=== PATIENT | female | born 1960 | race Caucasian/White ===

== ENCOUNTER 2020-12-10 15:01 | Observation (INO) | payer OTHER, SELFPAY ==
[2020-12-10] VITALS (12 sets, daily range): BP systolic 107–137; BP diastolic 67–77; PULSE 60–78; RESP 16–22; TEMP 37–37.7; O2SAT 90–98; BMI 27.1; BMI 26.6
--- NOTE | 2020-12-10 15:26 | RAD_ITS ---
STUDY: X-RAY CHEST REASON FOR EXAM: Female, 60 years old. cough TECHNIQUE: AP portable COMPARISON: None. FINDINGS: There is mild prominence of markings in the retrocardiac portion of left lower lobe possibly representing inflammatory changes.. There is no demonstrated pleural abnormality. Heart is upper normal size.. Normal mediastinum and flaquita. Normal visualized pulmonary arteries. Tortuous mildly calcified aortic arch and descending thoracic aorta. Dorsal spine demonstrates degenerative change Normal visualized ribs, clavicles, and shoulders. There is no demonstrated abnormality of the visualized soft tissue structures of the upper abdomen. RAD/Chest 1 View (Portable) IMPRESSION: Question mild infiltrate in the left lower lobe. Clinical correlation recommended. Electronically Signed: Joey Oquendo MD at 16:24 EDT , Service support ,
--- NOTE | 2020-12-10 15:29 | EDS_ITS ---
HPI History of Present Illness Chief Complaint: General Illness Informant: patient Onset/Context/Timing Onset: Weeks (1) Context: Gradual Onset Timing: Continuous Quality: Aching Location: Generalized Worsened by: Nothing Relieved by: Nothing Narrative Narrative: Patient presents with cough, fever, and upper respiratory congestion for the past week. Patient states [facility] and was referred to the emergency department for possible Covid. Patient admits to a fever of 103 at home. Patient admits to a cough. Patient states she occasionally coughs up some sputum but she does not look at it. Patient admits to some mild rhinorrhea. Patient denies any sore throat or ear pain. Patient denies any shortness of breath. Patient admits to mild nausea but denies any vomiting. Patient admits to general myalgias and low back pain. Patient also admits to a mild headache. Patient denies any known COVID-19 exposures. Patient has not been vaccinated for COVID-19. [facility] Medical History (Updated 12/10/20 @ 18:[address] Lori Galeas MD) Hypothyroid Home Medications levothyroxine 12.5 mcg PO BID 12/10/20 [History Last Taken 12/10/20] thyroid (pork) [[place] Thyroid] 15 mg PO BID 12/10/20 [History Last Taken 12/10/20] Allergy/AdvReac Type Severity Reaction Status Date / Time No Known Allergies Allergy Verified 12/10/20 15:21 Family History (Updated 12/10/20 @ 18:[address] Lori Galeas MD) Mother CVA (cerebral vascular accident) Hypertension Father Cancer Hx lymphoma. Surgical History (Updated 12/10/20 @ 15:[address] Kilo Scott DO) History of repair of hiatal hernia Hx of tonsillectomy Social History (Updated 12/10/20 @ 18:[address] Lori Galeas MD) household members: spouse Smoking Status: Never smoker alcohol intake: never substance use type: does not use ROS ROS ED Constitutional Constitutional ED: Reports fever(s); Denies chills Eyes Eyes: Denies blurry vision or change in vision ENT ENT ED: Reports rhinorrhea; Denies sore throat Cardiovascular Cardiovascular: Denies chest pain or palpitations Respiratory/Chest Respiratory/Chest: Reports cough; Denies dyspnea Gastrointestinal Gastrointestinal: Denies nausea or vomiting Genitourinary Genitourinary ED: Denies dysuria or hematuria Musculoskeletal Musculoskeletal: Reports back pain and myalgias; Denies neck pain Integumentary Denies abscess or rash Neurologic Neurologic: Reports headache(s); Denies weakness Allergic/Immunologic Allergic/Immunologic ED: Denies mouth swelling or urticaria EXAM Physical Exam Const Vital Signs: 12/10/20 15:01 12/10/20 15:21 12/10/20 15:24 Temperature 99.8 F H 99.8 F H Temperature Source Temporal Temporal Pulse Rate 67 76 Respiratory Rate 20 H 18 Respiratory Effort Normal Respiratory Pattern Normal Blood Pressure 107/71 107/71 Blood Pressure Mean 83 83 Pulse Ox 98 98 Oxygen Delivery Method Room Air Room Air 12/10/20 16:22 12/10/20 17:01 12/10/20 17:05 Temperature 99.7 F H 99.8 F H Temperature Source Temporal Oral Pulse Rate 60 70 74 Respiratory Rate 16 22 H 20 H Respiratory Effort Respiratory Pattern Blood Pressure 137/73 H 115/67 115/67 Blood Pressure Mean 94 83 83 Pulse Ox 90 92 90 Oxygen Delivery Method Room Air Room Air Room Air Positive well nourished and well developed General Appearance ED: well developed HEENT Reports moist mucous membranes Neck supple and no JVD Resp normal respiratory effort Auscultation: rales bilateral Cardio regular rate, regular rhythm and no murmurs GI normal to inspection, nondistended, normoactive bowel sounds and non-tender Palpation: soft Extremity normal to inspection General Extremety ED: Negative for edema or tenderness General Extremity: Negative for edema Neuro oriented x3, CN's II-XII intact bilaterally and no sensory deficits noted Sensorium / Orientation: alert Motor Exam: strength 5/5 throughout Psych mental status grossly normal Skin no rashes or lesions noted MDM MDM MDM Narrative Medical decision making narrative: Portable 1 view chest x-ray was obtained. On my interpretation, lung showed questionable left lower lobe infiltrate. There is normal cardiac silhouette. Bony thorax is normal. Radiologist also interpreted the x-ray and agrees. Rapid strep was obtained and was negative. COVID-19 rapid antigen was obtained and was positive. CBC shows a white blood cell count of 3.8. Comprehensive metabolic profile was obtained and was essentially within normal limits. TSH was obtained and was elevated at 24.8. Lactate was normal. Patient was advised of her findings. Patient is agreeable for monoclonal antibody referral. This was made. Patient was instructed to take Tylenol or ibuprofen as needed for any aches or fevers. Patient was instructed to take Mucinex DM as needed for any cough. Patient was instructed to increase her thyroid medications to a whole tablet twice daily. Patient was instructed to follow-up with her primary care physician in 5 to 7 days. Patient and family understood and were agreeable with the plan. All questions were answered. Prior to discharge, her oxygen saturation started to decrease. Patient was ambulated in her room with a pulse oximeter. Patient states she was lightheaded and dizzy while walking and felt like she was going to pass out. Because of this, I discussed the case with the hospitalist. She will admit the patient to her service for observation. Patient understood and was agreeable with the plan. All questions were answered. Lab Data Attestation: I reviewed the patient's lab results. Labs: Laboratory Results - last 24 hr 12/10/20 12/10/20 12/10/20 15:42 15:42 15:42 WBC 3.8 L RBC 4.17 L Hgb 13.3 Hct 40.0 MCV 95.9 MCH 31.9 MCHC 33.3 RDW Std Deviation 42.8 RDW Coeff of Prateek 12.1 Plt Count 141 L MPV 10.0 Immature Gran % (Auto) 0.500 Neut % (Auto) 69.0 Lymph % (Auto) 24.1 [place] % (Auto) 6.1 Eos % (Auto) 0.0 Baso % (Auto) 0.3 Absolute Neuts (auto) 2.6 Absolute Lymphs (auto) 0.91 Nucleated RBC % 0 Platelet Estimate SLT DEC RBC Morphology NORM C+C Sodium 138 Potassium 3.5 Chloride 100 Carbon Dioxide 31.0 Anion Gap 7 BUN 10 Creatinine 0.67 Estim Creat Clear Calc 76.14 Est GFR (MDRD) Af Amer 116 Est GFR (MDRD) Non-Af 96 BUN/Creatinine Ratio 15.0 Glucose 102 Lactic Acid 1.1 Calcium 8.0 L Total Bilirubin 0.40 AST 25 ALT 23 Alkaline Phosphatase 41 L Total Protein 6.7 Albumin 3.0 L Globulin 3.7 Albumin/Globulin Ratio 0.8 L TSH 24.80 H Radiography Chest X-Ray - ED: 1 View, Read by ED Physician, Read by Radiologist and Left Infiltrate Diagnostic Testing: Radiology Impression Chest X-Ray 12/10/20 15:26 IMPRESSION: Question mild infiltrate in the left lower lobe. Clinical correlation recommended. Electronically Signed: Joey Oquendo MD at 16:24 EDT , Service support , EKG Initial EKG: Attestation: I personally reviewed and interpreted this EKG as follows: Interpretation: Sinus Rhythm (70) and Non-Specific ST Changes Prior EKG tracings: not available for review Treatment and Re-Evaluation Vital Sign Attestation:: Vital signs reviewed prior to admission. They are stable. Discharge Plan Dx/Rx/DC Orders Clinical Impression: COVID-19, Hypothyroidism, Near syncope Disposition Disposition: Acute Care Hospital [facility]
[2020-12-10] MEDS: Acetaminophen 500 MG Tablet 1000 MG PO (15:51)
[2020-12-10 16:02] LABS: Absolute Lymphocyte Count 0.91 X10^3/uL (0.83-4.51); Absolute Neutrophil Count 2.6 X10^3/uL (2.0-7.7); Basophil# 0.01 X10^3/uL; Basophil% 0.3 % (0-1); Hemoglobin 13.3 g/dL (12.0-15.0); Lymphocyte # 0.91 X10^3/ul (0.83-4.51); Lymphocyte % 24.1 % (19-41); Mean Corp Hgb Conc 33.3 g/dL (32-36); Mean Corpuscular Hgb 31.9 pg (27.0-32.0); Mean Corpuscular Volume 95.9 fL (81-99); Monocyte# 0.23 X10^3/uL; Monocyte% 6.1 % (0-10); NRBC Flagged by Analyzer 0 % (0-5); Neutrophil # 2.61 X10^3/uL (2.7-7.7); POSITIVE MORPHOLOGY YES; Platelet Count 141 K/mm3 (150-450); RBC Distribution Width CV 12.1 % (11.6-14.6); RBC Distribution Width SD 42.8 fl (35.1-43.9); Red Blood Count 4.17 M/mm3 (4.2-5.4); White Blood Count 3.8 K/mm3 (4.4-11.0)
[2020-12-10 16:05] LABS: Differential Indicated SCAN CRITERIA MET
[2020-12-10 16:28] LABS: ALB/GLOB Ratio 0.8 RATIO (0.9-2.4); AST(SGOT) 25 U/L (15-37); Alanine Aminotransfer ALT/SGPT 23 U/L (13-56); Alkaline Phosphatase 41 U/L (45-117); Anion Gap 7 (5-15); BUN 10 mg/dL (7-18); Chloride 100 mmol/L (98-107); Creatinine, Serum 0.67 mg/dL (0.55-1.02); EST Glomerular Filtration Rate 96 mL/min (>60); Est Glom Filt Rate - Afr Amer 116 mL/min (>60); Estimated Creatinine Clearance 76.14 ml/min; Globulin 3.7 g/dL (2.2-4.2); Glucose 102 mg/dL (74-106); Potassium 3.5 mmol/L (3.5-5.1); Protein, Total 6.7 g/dL (6.4-8.2); Sodium Level 138 mmol/L (136-145)
[2020-12-10 16:48] LABS: Platelet Estimate SLT DEC (ADEQ); Red Cell Morphology NORM C+C NORMAL (NORM C&C)
[2020-12-10 17:01] LABS: Lactic Acid 1.1 mmol/L (0.4-1.9)
--- NOTE | 2020-12-10 17:55 | PCM.HP.STD ---
HPI - General General Date of Admission: 12/10/20 Date of Service: 12/10/20 Chief Complaint: COVID sxs, lightheaded/dizziness, near syncope HPI Narrative The patient is a 60 y/o [employer] Female w/ PMHx: Hypothyroidism who presents to the [facility] ED on 12/10/20, referred from Urgent Care with history of ongoing fatigue, rhinorrhea, mild headache, malaise, fever, body aches, non-productive cough, decreased oral intake with nausea without emesis and severe lightheadedness/dizziness with near syncopal events including at the urgent care on day of eventual ED presentation requiring position changes/laying down twice while being evaluated with hypoxia prompting referral to the ED for evaluation. She denies any nausea, emesis or diarrhea associated. Work-up in the ED included T 99.8, HR 70, BP 117/67, RR 22, 90-92% on RA at rest but with ambulation attempts became lightheaded and dizzy, CBC w/ WBC 3.8, Hgb 13.3, Plts 141 without marked shift, LA 1.1, CMP w/ Ca 8.0, Alk phos 41, TSH 24.80, rapid covid antigen positive, CXR w/ question mild infiltrate in the left lower lobe. In the ED patient administered decadron. [facility] Medical History (Updated 12/10/20 @ 18:[address] Lori Galeas MD) Hypothyroid Home Medications levothyroxine 12.5 mcg PO BID 12/10/20 [History Last Taken 12/10/20] thyroid (pork) [[place] Thyroid] 15 mg PO BID 12/10/20 [History Last Taken 12/10/20] Allergy/AdvReac Type Severity Reaction Status Date / Time No Known Allergies Allergy Verified 12/10/20 15:21 Family History (Updated 12/10/20 @ 18:[address] Lori Galeas MD) Mother CVA (cerebral vascular accident) Hypertension Father Cancer Hx lymphoma. Surgical History (Updated 12/10/20 @ 15:[address] Kilo Scott DO) History of repair of hiatal hernia Hx of tonsillectomy Social History (Updated 12/10/20 @ 18:[address] Lori Galeas MD) household members: spouse Smoking Status: Never smoker alcohol intake: never substance use type: does not use ROS ROS Narrative Admission Review of Systems: CONSTITUTIONAL: No weight loss, + fever, chills, weakness or fatigue. HEENT: + Headache, rhinorrhea. Eyes: No visual loss, blurred vision, double vision or yellow sclerae. Ears, Nose, Throat: No hearing loss, sneezing or sore throat. SKIN: No rash or itching, lesions, wounds. CARDIOVASCULAR: No chest pain, chest pressure or chest discomfort, palpitations, edema, orthopnea, syncopal events. RESPIRATORY: + Cough, No shortness of breath, wheezing, hemoptysis. GASTROINTESTINAL: + anorexia, nausea without vomiting, No diarrhea, abdominal pain, melena, BRBPR. GENITOURINARY: No dysuria, frequency, urgency or retention. NEUROLOGICAL: No headache, dizziness, syncope, paralysis, ataxia, numbness or tingling in the extremities, focal weakness, change in bowel or bladder control, seizure. MUSCULOSKELETAL: + muscle, back pain, joint pain or stiffness. HEMATOLOGIC: No anemia, bleeding or bruising. LYMPHATICS: No enlarged nodes. No history of splenectomy. PSYCHIATRIC: No history of depression or anxiety. ENDOCRINOLOGIC: No reports of sweating, cold or heat intolerance. No polyuria or polydipsia. ALLERGIES: No history of asthma, hives, eczema or rhinitis. Vital Signs Vital Signs Vital Signs: 12/10/20 15:01 12/10/20 15:21 12/10/20 15:24 Temperature 99.8 F H 99.8 F H Temperature Source Temporal Temporal Pulse Rate 67 76 Respiratory Rate 20 H 18 Respiratory Effort Normal Respiratory Pattern Normal Blood Pressure 107/71 107/71 Blood Pressure Mean 83 83 Pulse Ox 98 98 Oxygen Delivery Method Room Air Room Air 12/10/20 16:22 12/10/20 17:01 12/10/20 17:05 Temperature 99.7 F H 99.8 F H Temperature Source Temporal Oral Pulse Rate 60 70 74 Respiratory Rate 16 22 H 20 H Respiratory Effort Respiratory Pattern Blood Pressure 137/73 H 115/67 115/67 Blood Pressure Mean 94 83 83 Pulse Ox 90 92 90 Oxygen Delivery Method Room Air Room Air Room Air Weight Weight: 157 lb 13.616 oz Body Mass Index (BMI) 27.1 Physical Exam Narrative Physical Examination: General: Awake, alert, oriented x 3 and cooperative, seated upright in the ED bed, fatigued, ill-appearing. Skin: Normal color, normal turgor, no icterus, no cyanosis. HEENT: AT/NC, EOMI, PERRLA, dry MM, no carotid bruits or JVD noted. Lungs: Severely diminished, greater bases, shallow breaths, no markedly noted current rales, ronchi or wheezing. Heart: Regular rate and rhythm; no gallop, rub audible. Abdomen: Soft, overweight, NTTP, ND, normal BS, no HSM. Extremities: No cyanosis, clubbing, or edema. Neurological: Patient awake, alert, oriented as noted, cognitive function intact; pupils equally reactive to light and accommodation, cranial nerves II-XII grossly normal, moving all 4 extremities, no focal deficits, strength moderately global decrease secondary to acute presentation. Psychiatric: Affect appears fatigued, ill-appearing, no acute evidence of depressive or anxiety feelings. Results Lab / Micro Data Result Diagrams: 12/10/20 15:42 12/10/20 15:42 Labs: Laboratory Results - last 24 hr 12/10/20 15:42: WBC 3.8 L, RBC 4.17 L, Hgb 13.3, Hct 40.0, MCV 95.9, MCH 31.9, MCHC 33.3, RDW Std Deviation 42.8, RDW Coeff of Prateek 12.1, Plt Count 141 L, MPV 10.0, Immature Gran % (Auto) 0.500, Neut % (Auto) 69.0, Lymph % (Auto) 24.1, [place] % (Auto) 6.1, Eos % (Auto) 0.0, Baso % (Auto) 0.3, Absolute Neuts (auto) 2.6, Absolute Lymphs (auto) 0.91, Nucleated RBC % 0, Platelet Estimate SLT DEC, RBC Morphology NORM C+C 12/10/20 15:42: Sodium 138, Potassium 3.5, Chloride 100, Carbon Dioxide 31.0, Anion Gap 7, BUN 10, Creatinine 0.67, Estim Creat Clear Calc 76.14, Est GFR (MDRD) Af Amer 116, Est GFR (MDRD) Non-Af 96, BUN/Creatinine Ratio 15.0, Glucose 102, Calcium 8.0 L, Total Bilirubin 0.40, AST 25, ALT 23, Alkaline Phosphatase 41 L, Total Protein 6.7, Albumin 3.0 L, Globulin 3.7, Albumin/Globulin Ratio 0.8 L, TSH 24.80 H 12/10/20 15:42: Lactic Acid 1.1 Micro: Microbiology 12/10/20 15:42 Interface Orders Group A Streptococcus Rapid Screen - Preliminary 12/10/20 15:42 Nasal Secretion SARS-CoV-2 Antigen (Rapid) - Final SARS-CoV-2 (COVID 19) Radiology Impression Chest X-Ray 12/10/20 15:26 IMPRESSION: Question mild infiltrate in the left lower lobe. Clinical correlation recommended. Electronically Signed: Joey Oquendo MD at 16:24 EDT , Service support , Assessment & Plan Assessment/Plan (1) Pneumonia due to COVID-19 virus: PLAN: The patient is a 60 y/o [employer] Female w/ PMHx: Hypothyroidism who presents to the [facility] ED on 12/10/20, referred from Urgent Care with history of ongoing fatigue, rhinorrhea, mild headache, malaise, fever, body aches, non-productive cough, decreased oral intake with nausea without emesis and severe lightheadedness/dizziness with near syncopal events including at the urgent care on day of eventual ED presentation requiring position changes/laying down twice while being evaluated with hypoxia prompting referral to the ED for evaluation. 1. Acute Hypoxia secondary to LLL Pneumonia, Suspect likely multilobar secondary to Acute Viral Syndrome, COVID-19 with associated #2: Will admit to the MS telemetry, maintain on COVID precautions, will maintain on oxygen with wean as tolerated to room air, PRN albuterol, HOB, IS parameters w/ pending sputum cultures, respiratory viral panel and urine antigens, will obtain D-dimer, procalcitonin, CRP, CPK, Ferritin, LDH, trop and BNP, continue supportive care including q 2 hour turning including prone given no prone bed availability and judicious hydration, closely monitor for worsening status for ARDS and multiorgan failure, will consult Infectious disease, will initiate and continue IV decadron x 10 doses, given presentation will also initiate IV remdesivir but defer to discretion of Infectious disease. 2. Syncopal Event with LH, Dizziness: Secondary to #1, EKG in ED requested and pending upon evaluation, will obtain cardiac enzymes to be cautious, obtain orthostatic VS given #1, continue judicious IVFs given #1, maintain on fall precautions. PT/OT consultation to ascertain stability and discharge needs as well as case management consultation. 3. Leukopenia, Thrombocytopenia, new: Admission WBC 3.8, Plts 141, secondary to acute presentation #1, will repeat CBC in AM. 4. Hypothyroidism with abnormal TSH: Admission TSH abnormal 24.80, will obtain FT4, patient has been taking only amour thyroid/levothyroxine. 5. GERD: Patient w/ Hx hiatal hernia s/p repair, maintain on famotidine. 6. DVT Prophylaxis: SCDs, lovenox. 7. CODE status: Patient HCPOA and living will not in place. Encouraged them to discuss and consider set-up with SW/CM availability for questions if interested. Given admission with COVID PNA with associated hypoxia, discussed CODE status at length including difference between FULL code, DNR-CCA and DNR-CC status. Following discussions about the differences in these status, requested Full Code status. Advanced Care Planning Face to Face Time: 16 minutes. Charges/Coding Visit Charges OBSV E&M: 99797 Initial observation care L3 Procedures Hospitalists Procedures: [id number] Advncd Care Plan 30 Min
--- NOTE | 2020-12-10 17:58 | EKG12_ITS ---
Test Reason : GENERAL Blood Pressure : / mmHG Vent. Rate : 070 BPM Atrial Rate : 070 BPM P-R Int : 168 ms QRS Dur : 080 ms QT Int : 446 ms P-R-T Axes : 007 -05 074 degrees QTc Int : 481 ms Normal sinus rhythm Nonspecific T wave abnormality Prolonged QT Abnormal ECG Confirmed by KULWINDER CORDON, JOSE ([id number]), editor farm journal BELLE VALLECILLO ([id number]) on 12/15/2020 10:50:29 AM Referred By: RICKY Confirmed By:RADHA MIRAMONTES MD
--- NOTE | 2020-12-10 18:15 | NURSING ---
PCU OBS WHTE COVID 19, NEAR SYNCOPE
[2020-12-10] MEDS: dexAMETHasone 4 MG/ML Vial 6 MG IV (18:21)
[2020-12-10 18:44] LABS: BNP,B-Type NATRIURETIC PEPTIDE 58.7 pg/mL (0-100)
[2020-12-10 18:49] LABS: Ferritin 432 ng/mL (8-252); LDH 278 U/L (84-246)
[2020-12-10 18:53] LABS: Procalcitonin 0.04 ng/mL (0.00-0.09)
[2020-12-10 19:06] LABS: D-Dimer Quantitative (DVT/PE) 0.58 FEU/ug/m (0.27-0.49)
[2020-12-10 19:51] LABS: Troponin-I HS 9 pg/mL (3.0-54.0)
--- NOTE | 2020-12-10 20:17 | PCS.PANDOC ---
PANDEMIC DOCUMENTATION INITIATED: Date: 10/20/2020 Time: 190
[2020-12-10] MEDS: Famotidine 20 MG Tablet PO (20:21)
[2020-12-10] MEDS: 0.9% Saline Lock 10 ML Syringe IV (20:21)
[2020-12-10] MEDS: Enoxaparin 30 MG/0.3 ML Syringe SC (20:21)
[2020-12-10] MEDS: 0.9% Normal Saline 1,000 ML 100 ML IV (20:21)
--- NOTE | 2020-12-10 20:23 | EKG12_ITS ---
Test Reason : GENERAL Blood Pressure : / mmHG Vent. Rate : 059 BPM Atrial Rate : 059 BPM P-R Int : 178 ms QRS Dur : 090 ms QT Int : 442 ms P-R-T Axes : 021 -02 047 degrees QTc Int : 437 ms Sinus bradycardia Nonspecific ST and T wave abnormality Abnormal ECG No previous ECGs available Confirmed by STANFORD CORDON, OSMIN ([id number]), newspaper photo editor BELLE VALLECILLO ([id number]) on 12/16/2020 10:00:53 AM Referred By: SANDRA Confirmed By:OSMIN COYNE MD
[2020-12-10 21:16] LABS: Troponin-I HS 10 pg/mL (3.0-54.0)
[2020-12-11] VITALS (9 sets, daily range): BP systolic 116–130; BP diastolic 57–86; PULSE 44–78; RESP 16–18; TEMP 36.7–37.2; O2SAT 94–96
[2020-12-11 01:20] LABS: Troponin-I HS 10 pg/mL (3.0-54.0)
--- NOTE | 2020-12-11 02:32 | NURSING ---
late entry 12/[address] per [facility] with elevated DDimer
[2020-12-11 06:49] LABS: Absolute Neutrophil Count 2.4 X10^3/uL (2.0-7.7); Hematocrit 38.4 % (37-47); Hemoglobin 13.1 g/dL (12.0-15.0); Lymphocyte % 25.5 % (19-41); Mean Corp Hgb Conc 34.1 g/dL (32-36); Mean Corpuscular Hgb 32.1 pg (27.0-32.0); Mean Corpuscular Volume 94.1 fL (81-99); Mean Platelet Vol. 10.1 fl (6.2-12.0); Monocyte% 5.7 % (0-10); NRBC Flagged by Analyzer 0 % (0-5); Neutrophil # 2.42 X10^3/uL (2.7-7.7); Neutrophil % 68.5 % (47-70); POSITIVE MORPHOLOGY YES; Platelet Count 144 K/mm3 (150-450); RBC Distribution Width CV 12.3 % (11.6-14.6); RBC Distribution Width SD 42.9 fl (35.1-43.9); Red Blood Count 4.08 M/mm3 (4.2-5.4); White Blood Count 3.5 K/mm3 (4.4-11.0)
[2020-12-11 07:00] LABS: Differential Indicated SCAN CRITERIA MET
[2020-12-11 07:36] LABS: ALB/GLOB Ratio 0.7 RATIO (0.9-2.4); AST(SGOT) 22 U/L (15-37); Alanine Aminotransfer ALT/SGPT 19 U/L (13-56); Albumin, Serum 2.6 g/dL (3.2-5.0); Alkaline Phosphatase 39 U/L (45-117); Anion Gap 6 (5-15); BUN 6 mg/dL (7-18); Calcium,Total 7.9 mg/dL (8.5-10.1); Chloride 106 mmol/L (98-107); Creatinine, Serum 0.46 mg/dL (0.55-1.02); EST Glomerular Filtration Rate 147 mL/min (>60); Est Glom Filt Rate - Afr Amer 178 mL/min (>60); Globulin 3.5 g/dL (2.2-4.2); Glucose 125 mg/dL (74-106); Potassium 3.7 mmol/L (3.5-5.1); Protein, Total 6.1 g/dL (6.4-8.2); Sodium Level 141 mmol/L (136-145); T4 Free Direct 0.69 ng/dL (0.76-1.46); Thyroid Stim Hormone (TSH) 4.74 uIU/mL (0.358-3.74)
[2020-12-11 07:37] LABS: Reactive Lymphocyte 1+
[2020-12-11] MEDS: Famotidine 20 MG Tablet PO ×2 (08:09→20:22)
[2020-12-11] MEDS: Enoxaparin 30 MG/0.3 ML Syringe SC ×2 (08:09→20:22)
[2020-12-11] MEDS: dexAMETHasone 4 MG/ML Vial 6 MG IV (08:10)
[2020-12-11] MEDS: 0.9% Saline Lock 10 ML Syringe IV (08:10)
--- NOTE | 2020-12-11 11:13 | CASEMGMT ---
STUART SCHNEIDER assessment: Initial transition planning/care coordination assessment. STUART SCHNIEDER introduced self and role at [facility], pt voices understanding and consents to assessment. Pt is on room air with no distress and speaks in full sentences. Pt is A/Ox4 and answers all questions appropriately. Pt states family has shown no symptoms and states no concerns getting groceries/resources once home. Care providers, pharmacy, and demographics verified. Presentation: 'Sick' for one week: cough,SOB, dizziness, fever Admitting dx: COVID, hypoxia, near syncope PCP: [facility]: elsa Peters for thyroid Preferred Pharmacy: [facility] Insurance: Self pay Prescription Benefit: Self pay Living Will/HPOA: Pt states does not have LW/HPOA and declines AD info. LNOK: Aren Bruce, Living Arrangements: Pt states lives with and 20yo child in 3 story home and states no concerns at home. Pt is independent with ADL's. Transportation: Pt states no transportation concerns. DME/HHC: Pt states no current DME or need for any DME. Pt states no hx of HHC or SNF. Pt states no concerns with going home at time of discharge. Pt is a homemaker. Pt states does not smoke cigarettes or drink ETOH. Pt voices no further concerns/needs. CM to follow for any further discharge planning/needs. Advised pt to ask for CM if any further questions/concerns/needs arise, voices understanding. Pt Goal: Home Plan[place] STUART SCHNEIDER
[2020-12-11 11:26] LABS: Magnesium 2.2 mg/dL (1.6-2.6)
--- NOTE | 2020-12-11 11:49 | PN.HOSP_ITS ---
Subjective Subjective Patient seen and examined. She was admitted with a complaint of shortness of breath and has been managed for COVID-19 infection. She says she feels much better today and her shortness of breath is improved markedly. She is now on room air. She has no other complaints and review of systems otherwise negative. She has remained hemodynamically stable. Objective Data Objective Data Vital Signs: Vital Signs Temp Pulse Resp BP Pulse Ox 98.4 F 78 16 130/74 H 94 12/11/20 08:02 12/11/20 09:09 12/11/20 08:02 12/11/20 08:02 12/11/20 09:41 Oxygen Flow Rate (L/min) 2 Oxygen Delivery Method Room Air Weight: 155 lb 13.869 oz Body Mass Index (BMI) 26.6 Intake & Output: Intake and Output for Last 24 Hours 12/09/20 12/10/20 12/11/20 23:59 23:59 23:59 Intake Total 140 / 240 1360 / 1360 Output Total 100 / 100 Balance 140 / 240 1260 / 1260 Lab / Micro Data Result Diagrams: 12/11/20 05:40 12/11/20 05:40 Labs: Laboratory Results - last 24 hr 12/10/20 15:42: WBC 3.8 L, RBC 4.17 L, Hgb 13.3, Hct 40.0, MCV 95.9, MCH 31.9, MCHC 33.3, RDW Std Deviation 42.8, RDW Coeff of Prateek 12.1, Plt Count 141 L, MPV 10.0, Immature Gran % (Auto) 0.500, Neut % (Auto) 69.0, Lymph % (Auto) 24.1, [place] % (Auto) 6.1, Eos % (Auto) 0.0, Baso % (Auto) 0.3, Absolute Neuts (auto) 2.6, Absolute Lymphs (auto) 0.91, Nucleated RBC % 0, Platelet Estimate SLT DEC, RBC Morphology NORM C+C 12/10/20 15:42: Sodium 138, Potassium 3.5, Chloride 100, Carbon Dioxide 31.0, Anion Gap 7, BUN 10, Creatinine 0.67, Estim Creat Clear Calc 76.14, Est GFR (MDRD) Af Amer 116, Est GFR (MDRD) Non-Af 96, BUN/Creatinine Ratio 15.0, Glucose 102, Calcium 8.0 L, Total Bilirubin 0.40, AST 25, ALT 23, Alkaline Phosphatase 41 L, Total Protein 6.7, Albumin 3.0 L, Globulin 3.7, Albumin/Globulin Ratio 0.8 L, TSH 24.80 H 12/10/20 15:42: Lactic Acid 1.1 12/10/20 15:42: Ferritin 432 H, Lactate Dehydrogenase 278 H, C-React Prot Ext Range 15.20 H 12/10/20 15:42: B-Natriuretic Peptide 58.7 12/10/20 15:42: Procalcitonin 0.04 12/10/20 18:19: D-Dimer Quant (PE/DVT) 0.58 H* 12/10/20 19:20: Troponin I High Sens 9 12/10/20 20:50: Troponin I High Sens 10 12/11/20 00:45: Troponin I High Sens 10 12/11/20 05:40: WBC 3.5 L, RBC 4.08 L, Hgb 13.1, Hct 38.4, MCV 94.1, MCH 32.1 H, MCHC 34.1, RDW Std Deviation 42.9, RDW Coeff of Prateek 12.3, Plt Count 144 L, MPV 10.1, Immature Gran % (Auto) 0.300, Neut % (Auto) 68.5, Lymph % (Auto) 25.5, [place] % (Auto) 5.7, Eos % (Auto) 0.0, Baso % (Auto) 0.0, Absolute Neuts (auto) 2.4, Absolute Lymphs (auto) 0.90, Nucleated RBC % 0, Reactive Lymphocytes 1+ 12/11/20 05:40: Sodium 141, Potassium 3.7, Chloride 106, Carbon Dioxide 29.0, Anion Gap 6, BUN 6 L, Creatinine 0.46 L, Estim Creat Clear Calc 110.90, Est GFR (MDRD) Af Amer 178, Est GFR (MDRD) Non-Af 147, BUN/Creatinine Ratio 13.0, Glucose 125 H, Calcium 7.9 L, Total Bilirubin 0.20, AST 22, ALT 19, Alkaline Phosphatase 39 L, Total Protein 6.1 L, Albumin 2.6 L, Globulin 3.5, Albumin/Globulin Ratio 0.7 L, TSH 4.74 H, Free T4 0.69 L 12/11/20 05:40: Magnesium 2.2 Micro: Microbiology 12/10/20 20:15 Mucosa - Nasopharyngeal Respiratory Panel (PCR) - Final 12/10/20 20:40 Urine, Clean Catch Legionella Antigen - Final 12/10/20 20:40 Urine, Clean Catch Streptococcus pneumoniae Antigen (M - Final 12/10/20 15:42 Interface Orders Group A Streptococcus Rapid Screen - Preliminary 12/10/20 15:42 Nasal Secretion SARS-CoV-2 Antigen (Rapid) - Final SARS-CoV-2 (COVID 19) Radiography Diagnostic Testing: Radiology Impression Chest X-Ray 12/10/20 15:26 IMPRESSION: Question mild infiltrate in the left lower lobe. Clinical correlation recommended. Electronically Signed: Joey Oquendo MD at 16:24 EDT , Service support , Physical Exam Const alert, oriented x3 and no apparent distress Exam Limitations: no limitations HEENT head/scalp atraumatic and moist oral mucous membranes Head and Scalp: normocephalic Eyes PERRL, EOMs intact bilaterally and conjunctivae normal Neck no lymphadenopathy Resp Resp Narrative: diminished breath sounds bibasally, no wheezes or crackles. On room air. Cardio regular rate, regular rhythm, S1 normal heart sound, S2 normal heart sound and no murmurs GI normal to inspection, nondistended, normoactive bowel sounds, soft to palpation, non-tender and non-distended Extremity normal to inspection, full ROM and no clubbing, cyanosis or edema Peripheral Pulses: Yes pulses 2+ throughout Skin no rashes or lesions noted Neuro oriented x3, CN's II-XII intact bilaterally and moves all extremities Sensorium / Orientation: awake and alert Psych affect normal Assessment & Plan Assessment/Plan (1) Pneumonia due to COVID-19 virus: PLAN: #Acute hypoxic respiratory insufficiency due to COVID 19 infection * feels much better. SOB has resolved and she is now on room air. * on IV decaderon and remdesivir. * ID consulted. * #Syncope: resolved. Likely due to dehydration from covid. high sensitivity troponins were negative. PT/OT on board. Fall precautions. #Hypothyroidism * TSH was 24 on admission, but free T3 is 0.69. * patient on synthroid for hypothyroidism. * on synthroid 12.5mcg bid; will switch to synthroid 35.5mcg daily. * to follow up with PCP on outpatient basis. * #GERD: on famotidine. DVT prophylaxis: lovenox. Charges/Coding Visit Charges Inpatient E&M: 44124 Subs Hosp L2
[2020-12-12] VITALS (10 sets, daily range): BP systolic 78–132; BP diastolic 50–77; PULSE 43–86; RESP 16–18; TEMP 36.6–37.1; O2SAT 94–96
[2020-12-12 07:27] LABS: Absolute Lymphocyte Count 1.95 X10^3/uL (0.83-4.51); Absolute Neutrophil Count 2.8 X10^3/uL (2.0-7.7); Basophil# 0.01 X10^3/uL; Basophil% 0.2 % (0-1); Hematocrit 38.7 % (37-47); Hemoglobin 13.2 g/dL (12.0-15.0); Lymphocyte # 1.95 X10^3/ul (0.83-4.51); Lymphocyte % 38.3 % (19-41); Mean Corp Hgb Conc 34.1 g/dL (32-36); Mean Corpuscular Hgb 32.3 pg (27.0-32.0); Mean Corpuscular Volume 94.6 fL (81-99); Mean Platelet Vol. 10.7 fl (6.2-12.0); Monocyte# 0.36 X10^3/uL; Monocyte% 7.1 % (0-10); NRBC Flagged by Analyzer 0 % (0-5); Neutrophil # 2.75 X10^3/uL (2.7-7.7); POSITIVE MORPHOLOGY YES; Platelet Count 172 K/mm3 (150-450); RBC Distribution Width CV 12.2 % (11.6-14.6); Red Blood Count 4.09 M/mm3 (4.2-5.4); White Blood Count 5.1 K/mm3 (4.4-11.0)
[2020-12-12 07:30] LABS: Differential Indicated SCAN CRITERIA MET
[2020-12-12 07:46] LABS: Anion Gap 4 (5-15); BUN 11 mg/dL (7-18); BUN/Creat Ratio 23.1 RATIO (10-20); Calcium,Total 8.1 mg/dL (8.5-10.1); Chloride 108 mmol/L (98-107); Creatinine, Serum 0.48 mg/dL (0.55-1.02); EST Glomerular Filtration Rate 141 mL/min (>60); Est Glom Filt Rate - Afr Amer 170 mL/min (>60); Estimated Creatinine Clearance 106.28 ml/min; Glucose 85 mg/dL (74-106); Potassium 3.5 mmol/L (3.5-5.1); Sodium Level 140 mmol/L (136-145)
[2020-12-12] MEDS: dexAMETHasone 4 MG/ML Vial 6 MG IV (09:04)
[2020-12-12] MEDS: Famotidine 20 MG Tablet PO (09:04)
[2020-12-12] MEDS: Enoxaparin 30 MG/0.3 ML Syringe SC (09:04)
--- NOTE | 2020-12-12 09:37 | EKG12_ITS ---
Test Reason : RYTHMN CHANGE Blood Pressure : / mmHG Vent. Rate : 047 BPM Atrial Rate : 047 BPM P-R Int : 178 ms QRS Dur : 084 ms QT Int : 486 ms P-R-T Axes : 019 015 049 degrees QTc Int : 430 ms Sinus bradycardia Nonspecific T wave abnormality Abnormal ECG When compared with ECG of 10-DEC-2020 20:23, MANUAL COMPARISON REQUIRED, DATA IS UNCONFIRMED Confirmed by STANFORD CORDON, OSMIN ([id number]), technical writer and editor BELLE VALLECILLO ([id number]) on 12/16/2020 9:50:13 AM Referred By: BRENNON Confirmed By:OSMIN COYNE MD
[2020-12-12] MEDS: 0.9% Normal Saline 1,000 ML 999 ML IV (12:12)
--- NOTE | 2020-12-12 14:03 | DS.PCM_ITS ---
Providers Date of Admission: 12/10/20 Primary Care Physician: Dr. Rahat Pinzon, DO Reason For Visit: COVID, HYPOXIA, NEAR SYNCOPAL EVENTS Diagnosis Discharge Diagnosis (1) Pneumonia due to COVID-19 virus: Status: Acute Code(s): U07.1 - COVID-19; J12.82 - Pneumonia due to coronavirus disease 2019 Medications at Discharge Home Medications dexamethasone 6 mg PO DAILY #8 tab 12/12/20 levothyroxine 25 mcg PO DAILY #30 cap 12/12/20 Hospital Course Operations None Procedures None Summary of Care Provided Minutes Spent on Discharge: 45 Hospital Course: Patient is a 60 y/o female with a PMH as outlined who was admitted via the ED on 12/10/2020 with a complaint of lightheadedness, dizziness, fatigue, fever, chills and near syncope as well as rhinorrhea and mild headache. She went to the urgent care on the day of admission, and was found to be hypoxic so she was sent to the ED. She got lightheaded and dizzy with ambulation. She tested positive for COVID. Chest xray showed mild infiltrae in the left lower lobe. She was admitted and managed for acute hypoxic respiratory insufficiency due to covid 19 pneumonia. She was started on remdesivir and decadron. Her shortness of breath improved and she was weaned off oxygen. SHe was noted to be intermittently bradycardic during admission. SHe was on synthroid for bradycardia, but it appeared to be prescribed bid, and it didnt seem like she was fully compliant with it. She was therefore counseled to be compliant with her synthroid, and dose was changed to 25mcg daily. TSH was elevated at 4.74 and free T4 of 0.69. Hospital course was complicated by orthostatic hypotension which resolved wtih administration of IVF. Patient was counseled to keep well- hydrated and to compliant with her Synthroid medication. She was discharged home on 12/12/2020 with a prescription for p.o. Decadron 6 mg tablets for 8 doses completed 10-day course. She was also counseled to remain in isolation till 12/20/2020 which would be 10 days and she was diagnosed. To follow-up with her primary care doctor in about 2 weeks. Patient seen and examined prior to discharge. She felt well and had no complaints. Review of systems otherwise negative. Labs and vitals reviewed. Home medication reviewed and reconciled. Physical Exam Const alert, oriented x3 and no apparent distress General Appearance: cooperative, comfortable and well kempt Exam Limitations: no limitations HEENT normocephalic, head/scalp atraumatic and moist oral mucous membranes Eyes PERRL, EOMs intact bilaterally and conjunctivae normal Neck no lymphadenopathy Resp Resp Narrative: diminished breath sounds bibasally, no wheezes or crackles. On room air. Cardio regular rate, regular rhythm, S1 normal heart sound, S2 normal heart sound and no murmurs GI normal to inspection, nondistended, normoactive bowel sounds, soft to palpation, non-tender and non-distended Extremity normal to inspection, full ROM and no clubbing, cyanosis or edema Skin no rashes or lesions noted Neuro oriented x3, CN's II-XII intact bilaterally and moves all extremities Sensorium / Orientation: awake and alert Psych affect normal Weight / BMI Weight Weight: 153 lb 10.595 oz Body Mass Index (BMI) 26.6 ABG / Lab / Microbiology Data Result Diagrams: 12/12/20 06:30 12/12/20 06:30 Laboratory: Laboratory Results - last 24 hr 12/12/20 06:30: WBC 5.1, RBC 4.09 L, Hgb 13.2, Hct 38.7, MCV 94.6, MCH 32.3 H, M CHC 34.1, RDW Std Deviation 43.0, RDW Coeff of Prateek 12.2, Plt Count 172, MPV 10.7, Immature Gran % (Auto) 0.400, Neut % (Auto) 54.0, Lymph % (Auto) 38.3, [place] % (Auto) 7.1, Eos % (Auto) 0.0, Baso % (Auto) 0.2, Absolute Neuts (auto) 2.8, Absolute Lymphs (auto) 1.95, Nucleated RBC % 0 12/12/20 06:30: Sodium 140, Potassium 3.5, Chloride 108 H, Carbon Dioxide 28.0, Anion Gap 4 L, BUN 11, Creatinine 0.48 L, Estim Creat Clear Calc 106.28, Est GFR (MDRD) Af Amer 170, Est GFR (MDRD) Non-Af 141, BUN/Creatinine Ratio 23.1 H, Glucose 85, Calcium 8.1 L Microbiology: Microbiology 12/11/20 15:30 Sputum, Expectorated/Coughed Gram Stain - Final 12/11/20 15:30 Sputum, Expectorated/Coughed Respiratory Culture - Preliminary Appears to be normal respiratory rosalinda. Further studies to follow. 12/10/20 15:42 Interface Orders Group A Streptococcus Rapid Screen - Final 12/10/20 20:15 Mucosa - Nasopharyngeal Respiratory Panel (PCR) - Final 12/10/20 20:40 Urine, Clean Catch Legionella Antigen - Final 12/10/20 20:40 Urine, Clean Catch Streptococcus pneumoniae Antigen (M - Final 12/10/20 15:42 Nasal Secretion SARS-CoV-2 Antigen (Rapid) - Final SARS-CoV-2 (COVID 19) D/C Instructions Discharge Diet: Low fat / Low cholesterol Discharge Activity: Return to Normal Activity Weight Bearing Status: Weight bearing as tolerated Call your doctor if you observe: Fever of 101 or Higher, Shortness of breath, Swelling in the ankles and Increased palpitations (irregular heartbeat) Meaningful Use Info Meaningful Use Diagnoses (Choose all that apply): None applicable Discharge Plan Admission Admit Date/Time: 12/10/20 17:56 Primary Reason for Your Visit: COVID 19 infection Attending Provider: Nirali Boyce Primary Care Provider: Rahat Pinzon Consulting Providers: Meena Kumar NP Instructions Additional Instructions / Restrictions: to remain in self isolation till December 20 2020. Discharge Orders/Prescriptions Prescriptions: New dexamethasone 6 mg tablet 6 mg PO DAILY Qty: 8 RF: 0 levothyroxine 25 mcg capsule 25 mcg PO DAILY Qty: 30 RF: 0 Discontinued levothyroxine 25 mcg tablet 12.5 mcg PO BID RF: 0 thyroid (pork) [[place] Thyroid] 30 mg Tablet 15 mg PO BID RF: 0 Referrals / Follow Up: Rahat Pinzon, [Primary Care Provider] - Within 2 Weeks Care Physician,No Primary [NON-STAFF] - Doctor,Your [STAFF PHYSICIAN] - 3-5 Days Disposition Disposition (needs filled in before D/C Order can be placed): Home, Self Care Charges/Coding Visit Charges Inpatient E&M: 72791 Disch Hosp
--- NOTE | 2020-12-15 14:49 | CASEMGMT ---
Call from Yuan Dominguez, stating that pt's is concerned about whether pt has a prescription at pharmacy. Per charting, pt should have script for dexamethasone and levothyroxine(pt was already on this med and has pills at home). Pt's wants this RN WYATT to call their refuse driver, Leon, to notify of prescription so that he can filler picker for pt. Call to Leon to notify, voices understanding. [place] STUART SCHNEIDER
== END 2020-12-12 11:50 | disposition home or self-care (01) ==
LOC: ED 18:00 → PCU 18:03
PROVIDERS: Admitting Provider Family Medicine; Emergency Provider Emergency Medicine; PCP Family Medicine; Visit Provider Student in an Organized Health Care Education/Training Program
DX: U07.1 COVID-19 (principal); J12.82 Pneumonia due to coronavirus disease 2019; R09.02 Hypoxemia; E03.9 Hypothyroidism, unspecified; K21.9 Gastro-esophageal reflux disease without esophagitis; D72.819 Decreased white blood cell count, unspecified; D69.6 Thrombocytopenia, unspecified; I95.1 Orthostatic hypotension; Z79.890 Hormone replacement therapy
CPT/HCPCS: 36415; 71045; 80048; 80053; 82728; 83605; 83615; 83735; 83880; 84145; 84439; 84443; 84484; 85025; 85379; 86140; 87040; 87070; 87205; 87426; 87449; 87633; 87880; 93005; 96361; 96372; 96374; 96376; 99218; 99251; 99285; J7030; J7050; A4216; G0378; G0463

== ENCOUNTER → 2021-01-20 08:08 | Outpatient (CLI) | payer SELFPAY ==
--- NOTE | 2021-01-20 08:17 | BI_ITS ---
MAMMOGRAPHY - BILATERAL SCREENING REASON FOR EXAM: Female, 60 years old. Routine annual screening examination. PERTINENT HISTORY: Non-contributory. TECHNIQUE: Digital bilateral breast dulce (3D mammographic acquisition) in the CC and MLO projections. 2-D mediolateral oblique (MLO) and craniocaudad (CC) views of both breasts were obtained. CAD: Full Field Digital Mammography with Computer Added Detection was performed. COMPARISON: No comparison mammograms available at this time. If any prior films become available, an addendum to this report can be generated. FINDINGS: Breast Composition: There are scattered areas of fibroglandular density. There are no dominant masses or suspicious calcifications. No other significant abnormalities are identified. BI/SCRN MAMM (CAD)W/DULCE BILAT IMPRESSION: Negative screening mammogram. Yearly followup mammogram recommended. (A) ASSESSMENT CATEGORY: BIRADS Category 1: Negative. A letter regarding these results will be sent to the patient by the facility within 30 days. Approximately 10% of breast cancers are not detected by mammography. A normal mammogram should not delay biopsy of a clinically suspicious abnormality. [id number] Electronically Signed: Alvaro Irene MD at 9:27 EST , Service support ,
== END ==
PROVIDERS: PCP Family Medicine; Referring Provider Obstetrics & Gynecology; Visit Provider Obstetrics & Gynecology
DX: Z12.31 Encounter for screening mammogram for malignant neoplasm of breast (principal)
CPT/HCPCS: 77063; 77067

== ENCOUNTER → 2022-01-12 | Outpatient (CLI) | payer SELFPAY ==
--- NOTE | 2022-01-12 09:32 | BI_ITS ---
MAMMOGRAPHY - BILATERAL SCREENING REASON FOR EXAM: Female, 61 years old. Routine annual screening examination. PERTINENT HISTORY: Non-contributory. TECHNIQUE: Digital bilateral breast dulce (3D mammographic acquisition) in the CC and MLO projections. 2-D mediolateral oblique (MLO) and craniocaudad (CC) views of both breasts were obtained. CAD: Full Field Digital Mammography with Computer Added Detection was performed. COMPARISON: Comparison is made with prior study dated 01/20/2021. FINDINGS: Breast Composition: There are scattered areas of fibroglandular density. There are no dominant masses or suspicious calcifications. No other significant abnormalities are identified. There has been no significant change since the prior study. BI/SCRN MAMM (CAD)W/DULCE BILAT IMPRESSION: Stable bilateral screening mammogram. Yearly follow-up mammogram recommended. (A) ASSESSMENT CATEGORY: BIRADS Category 1: Negative. A letter regarding these results will be sent to the patient by the facility within 30 days. Approximately 10% of breast cancers are not detected by mammography. A normal mammogram should not delay biopsy of a clinically suspicious abnormality. [id number] Electronically Signed: Alvaro Irene MD at 10:24 EST ,
== END | disposition home or self-care (01) ==
LOC: OPBI 09:11
PROVIDERS: PCP Family Medicine; Referring Provider Registered Nurse; Visit Provider Registered Nurse
DX: Z12.31 Encounter for screening mammogram for malignant neoplasm of breast (principal)
CPT/HCPCS: 77063; 77067

== ENCOUNTER → 2023-01-18 | Outpatient (CLI) | payer SELFPAY, OTHER ==
--- NOTE | 2023-01-18 09:06 | BI_ITS ---
MAMMOGRAPHY - BILATERAL SCREENING REASON FOR EXAM: Female, 62 years old. Routine annual screening examination. PERTINENT HISTORY: Non-contributory. TECHNIQUE: Digital bilateral breast dulce (3D mammographic acquisition) in the CC and MLO projections. 2-D mediolateral oblique (MLO) and craniocaudad (CC) views of both breasts were obtained. CAD: Full Field Digital Mammography with Computer Added Detection was performed. COMPARISON: Comparison is made with prior study dated January 12, 2022 and January 20, 2021. FINDINGS: Breast Composition: There are scattered areas of fibroglandular density. There are no dominant masses or suspicious calcifications. No other significant abnormalities are identified. There has been no significant change since the prior study. BI/SCRN MAMM (CAD)W/DULCE BILAT IMPRESSION: Stable bilateral screening mammogram. Yearly follow-up mammogram recommended. (A) ASSESSMENT CATEGORY: BIRADS Category 1: Negative. A letter regarding these results will be sent to the patient by the facility within 30 days. Approximately 10% of breast cancers are not detected by mammography. A normal mammogram should not delay biopsy of a clinically suspicious abnormality. [id number] Electronically Signed: Alvaro Irene MD at 10:14 EST ,
== END | disposition home or self-care (01) ==
LOC: OPBI 08:35
PROVIDERS: PCP Family Medicine; Referring Provider Advanced Practice Midwife; Visit Provider Advanced Practice Midwife
DX: Z12.31 Encounter for screening mammogram for malignant neoplasm of breast (principal)
CPT/HCPCS: 77063; 77067

== ENCOUNTER → 2024-01-17 | Outpatient (CLI) | payer SELFPAY, OTHER | END | disposition home or self-care (01) | LOC: OPBI 09:32 | PROVIDERS: PCP Family Medicine; Referring Provider Nurse Practitioner Women's Health; Visit Provider Nurse Practitioner Women's Health | DX: Z12.31 Encounter for screening mammogram for malignant neoplasm of breast (principal) | CPT/HCPCS: 77063; 77067 ==

== ENCOUNTER → 2025-01-15 | Outpatient (CLI) | payer SELFPAY, OTHER ==
--- OUTSIDE RECORDS SUMMARY | 2025-01-15 07:44 | XMS RPT_ITS | CCD ---
Author Organization [facility] Care Team Providers Care Crts Name Role Phone Dr. Rahat Pinzon Primary Care Provider YAZMIN Scott Attending Provider Rahat Pinzon Primary Care Unavailable Rosa Granados NP Referring Unavailable Rosa Granados NP Attending Unavailable Medications Current Medications Medication Drug Class(es) Dates Sig (Normalized) Sig (Original) dexamethasone 6 mg oral tablet (2 sources) Corticosteroid Start: 12-12-2020 take 6 mg by mouth once daily Dexamethasone Active 6 MG PO DAILY December 11, 2020 11:00pm levothyroxine sodium 0.025 mg oral capsule (4 sources) l-Thyroxine Start: 12-12-2020 take 25 ug by mouth once daily in the morning Levothyroxine Active 25 MCG PO DAILY December 11, 2020 11:00pm to be taken early in the morning on an empty stomach with a glass of water Start: 12-10-2020 End: 12-12-2020 take 12.5 ug by mouth twice daily Levothyroxine Discontinued 12.5 MCG PO TWICE A DAY December 09, 2020 11:00pm December 12, 2020 1:44pm Completed/Discontinued Medications Medication Drug Class(es) Dates Sig (Normalized) Sig (Original) thyroid (residential) 30 mg oral tablet (2 sources) Start: 12-10-2020 End: 12-12-2020 take 1 tablet by mouth twice daily Thyroid (Pork) ([place] Thyroid) 30 mg Tablet Discontinued 15 MG PO TWICE A DAY December 09, 2020 11:00pm December 12, 2020 1:44pm Problems Problem Classification Problem Date Documented Da te Episodic/Chronic Other screening for suspected conditions (not mental disorders or infectious disease) (3 sources) Patient encounter status; Translations: [Encounter for other screening for malignant neoplasm of breast] Onset: 02-13-2024 01-12-2022 Episodic Syncope (4 sources) Near syncope; Translations: [Syncope and collapse] 12-10-2020 Episodic Viral infection (2 sources) Disease caused by 2019-nCoV; Translations: [COVID-19] 12-10-2020 Episodic Results Test Name Value Interpretation Reference Range Facility Director State Pharmacy Office Visit Reporton 01-17-2024 Director State Pharmacy Office Visit Report [facility] [address], [address] [place] [address] OFFICE VISIT Date of Service: 01/17/24 MR#: [id number] Acct: [id number] Name: ZOHAIB FRANCIS Rep #: [id number] : 1960 Provider: CRISTIAN Rivera Age/Sex: 63/F [place] [facility] [place]: [place] Intake Vital Signs 01/18/23 09:05 01/17/24 09:46 Height 5 ft 4 in 5 ft 4 in Intake Visit Reasons: MAMMOGRAM OUTREACH Allergies No Known Allergies Allergy (Verified 12/10/20 15:21) PFSH Medical History Pneumonia due to COVID-19 virus Hypothyroidism Hypothyroid Surgical History History of repair of hiatal hernia Hx of tonsillectomy Family History Mother CVA (cerebral vascular accident) Hypertension Father Cancer Hx lymphoma. Social History household members: spouse Smoking Status: Never smoker alcohol intake: never substance use type: does not use HPI MAMMOGRAM OUTREACH Details: ZOHAIB FRANCIS is a 63 year old who presents for breast exam and mammogram screening. ROS Const Constitutional: Reports system reviewed and no additional complaints, except as documented : Reports system reviewed and no additional complaints, except as documented; Denies nipple discharge Skin Skin/Breast: Reports as per HPI; Denies breast mass, breast pain, breast skin changes or nipple discharge Psych Psych: Reports system reviewed and no additional complaints, except as documented Exam Const General: cooperative and no acute distress Orientation: oriented x3 HENMT Head: normal to inspection Neck Neck: normal visual inspection Chest Breast inspection: normal inspection of the breasts and normal inspection of the axillae Breast palpation: normal palpation of the breasts and normal palpation of the axillae Resp Effort Inspection: normal respiratory effort and able to speak in complete sentences Coding Level of Care Code Attention Plating Stripper Diagnoses Breast cancer screening Z Assessment and Plan Assessment and Plan (1) Breast cancer screening: Status: Acute Plan: breast exam complete; mammogram ordered. Final plan with results. Orders: Orders SCRN MAMM (CAD)W/DULCE BILAT Today Z. - Encounter for other screening for malignant neoplasm of breast 01/17/2448 Date Esha Moseley NP-C Cosigner Signature: Date (if applicable) CC: Normal [facility] SCRN MAMM (CAD)W/DULCE BILATo n 01-17-2024 [facility] Imaging Services [address] [place] [id number] SCRN MAMM (CAD)W/DULCE BILAT MR#: [id number] Acct: [id number] Name: ZOHAIB FRANCIS Rep #: [id number] : 1960 F 63 From: Alvaro palacios MD PCP: Dr. Rahat Pinzon, Status: REG CLI Study: SCRN MAMM (CAD)W/DULCE BILAT Date of Exam: 01/05 04/30 Exam# [id number] Ordering Dr: Esha Moseley MEDICAL PATHOLOGY TEACHERFionaC [id number] MAMMOGRAPHY - BILATERAL SCREENING REASON FOR EXAM: Female, 63 years old. Routine annual screening examination. PERTINENT HISTORY: Non-contributory. TECHNIQUE: Digital bilateral breast dulce (3D mammographic acquisition) in the CC and MLO projections. 2-D mediolateral oblique (MLO) and craniocaudad (CC) views of both breasts were obtained. CAD: Full Field Digital Mammography with Computer Added Detection was performed. COMPARISON: Comparison is made with prior study January 18, 2023 and January 12, 2022. FINDINGS: Breast Composition: There are scattered areas of fibroglandular density. There are no dominant masses or suspicious calcifications. No other significant abnormalities are identified. There has been no significant change since the prior study. BI/SCRN MAMM (CAD)W/DULCE BILAT IMPRESSION: Stable bilateral screening mammogram. Yearly follow-up mammogram recommended. (A) ASSESSMENT CATEGORY: BIRADS Category 1: Negative. A letter regarding these results will be sent to the patient by the facility within 30 days. Approximately 10% of breast cancers are not detected by mammography. A normal mammogram should not delay biopsy of a clinically suspicious abnormality. [id number] Electronically Signed: Alvaro Irene MD at 10:30 EST , CC: CRISTIAN Moseley; Dr. Rahat Pinzon DO Weight Checker: Signed Normal [facility] GYNon 11-10-2016 [employer] [facility]YNECOLOGIC CYTOLOGY REPORTNAME: TITO, Date 11/18/2016 ZOHAIB Reported:Medical Record [id number]:Accession Number: [id number].Specimen Source: CERVICAL PAP SMEAR Relevant Clinical History: Smears . . . . . . . . . .: 1LMP . . . . . . . . . . . . . . . . . . . . . : Not Provided HPV Reflex? . . . . . . . . . . .Menopause . . . . . . . . . . . . . : n/a. . . : YDate of Last Pap Test .. . . . . .. : ??/??/2013Result of Last Pap Test . . . . . . : 2013 negComment: z12.4-screen for malignant neoplasm cervixSPECIMEN ADEQUACY:Satisfactory for interpretationEndocervical component presentGENERAL CATEGORIZATION:NEGATIVE FOR INTRAEPITHELIAL LESION OR MALIGNANCYINTERPRETATION/RESU LT:Atrophic pattern LMSScreened by / Reviewed by (Electronic Signature) Department of Pathology Page 1 of 1 [facility] Vital Signs Date Time Vital Sign Value Performing Clinician Sanjuanai sukh 01-12-2022 09:27-0500 Body height 162.[address] Rahat Pinzon Work Phone: [facility] Work Phone: Encounters Encounter Date Encounter Type Care Provider Facility Start: 01-17-2024 End: 01-17-2024 ambulatory Rahat Pinzon Facility:[facility] Start: 01-18-2023 End: 01-18-2023 ambulatory [facility] Work Phone: Start: 01-18-2023 End: 01-18-2023 Patient encounter procedure [facility] Work Phone: Start: 01-12-2022 Non-patient / Non-visit Dr. Kristin Pinzon Work Phone: [facility] Start: 01-12-2022 End: 01-12-[address] Rahat Pinzon Work Phone: [facility] Work Phone: Start: 01-12-2022 End: 01-12-[address] Rahat Pinzon Work Phone: [facility] Start: 11-10-2016 End: 2016 Ambulatory Facility:[facility] Procedures Date Procedure Procedure Detail Performing Clinician Start: 01-18-2023 Screening mammography Start: 01-12-2022 Screening mammography Alexis Pinzon Work Phone: Payers Date Payer Category Payer Self-pay [id number] 2023 Unknown [id number] 2023 Unknown [id number] Unknown [id number] Social History Date Type Detail Facility Start: 01-12-2022 End: 01-18-2023 Tobacco smoking status NHIS Unknown if ever smoked [facility] Start: 1960 Sex Assigned At Female [facility] Evaluation note Note Date & Type Note Facility Evaluation note No assessment information availa ble [facility] Work Phone: Summary Purpose Family History No Family History Records Found Relationship Condition Age at Onset Recorded Date/T monique mother Cerebrovascular accident (CVA) Unknown Hypertension Unknown father Malignant neoplasm Unknown Advance Directives No Advanced Directives Records Found Advance Directive Response Recorded Date/ Time Living Will Yes December 10 6:01pm Power of [employer] No December 10 021 6:01pm Chief Complaint and Reason for Visit Chief Complaint SCREENING Amb Documentation Chief Complaint SCREENING Additional Source Comments INFORMATION SOURCE (unrecogn ized section and content) DATE CREATED AUTHOR 08/31/2017 [facility] DATE CREATED AUTHOR AUTHOR'S ORGANIZ ATION 02/16/2024 [facility] Goals (unrecognized section and content) Goals may be documented in a n alternate sectionGoals may be documented in an alternate section Care Teams (unrecognized sec tion and content) Team Status: Active Member Role Status Dates Dr. Rahat Pinzon DO Primary Care Provider Active Team Status: Inactive Member Role Status Dates Dr. Rahat Pinzon DO Primary Care Provider Active Tiera Lin CNM Attending Provider, Referring Pro vider Active FOR RECORDS PERTAINING TO PATIENTS WHO ARE OR HAVE BEEN ENROLLED IN A CHEMICAL DEPENDENCY/SUBSTANCEABUSE PROGRAM, SOME INFORMATION MAY BE OMITTED. This clinical summary was aggregated from multiple sources. Caution should be exercised in using it in the provision of clinical care. This summary normalizes information from multiple sources, and as a consequence, information in this document may materially change the coding, format and clinical context of patient data. In addition, data may be omitted in some cases. CLINICAL DECISIONS SHOULD BE BASED ON THE PRIMARY CLINICAL RECORDS. [facility] [employer] provides no warranty or guarantee of the accuracy or completeness of information in this document.
--- NOTE | 2025-01-15 08:17 | BI_ITS ---
EXAM: SCREENING MAMM (CAD), BILAT DATE: 01/15/2025 CLINICAL HISTORY: F, Age 64 y/o , SCREENING No family history. TECHNIQUE: Procedure Code: [id number] Modality: MG Procedure: SCREENING MAMM (CAD), BILAT COMPARISON: Prior exam(s) dated January 17, 2024.. FINDINGS: TISSUE DENSITY: There are scattered areas of fibroglandular density. Bilateral Breast Mammographic Findings: No significant masses, calcifications or other abnormalities are identified. No suspicious masses, areas of developing architectural distortion, or suspicious calcifications. There has been no significant interval change. BI/SCREENING MAMM (CAD), BILAT IMPRESSION: Stable bilateral screening mammogram. OVERALL FINAL ASSESSMENT BI-RADS 1: NEGATIVE. RECOMMENDATION: Routine annual follow-up in 1 Year Additional Recommendation none A letter with findings and recommendations will be mailed to the patient. Reading Location: [id number]
== END | disposition home or self-care (01) ==
PROVIDERS: Referring Provider Nurse Practitioner Women's Health; Visit Provider Nurse Practitioner Women's Health
DX: Z12.31 Encounter for screening mammogram for malignant neoplasm of breast (principal)
CPT/HCPCS: 77067